=== PATIENT | male | born 1940 | race Caucasian/White ===

== ENCOUNTER → 2022-11-10 15:41 | Outpatient (CLI) | payer MEDICARE, OTHER, SELFPAY ==
--- NOTE | ~2022-11-10 | XR_ITS ---
XR hip RT 2V w AP pelvis 11/10/2022 16:08 Indication: Right hip pain after fall. Procedure: AP pelvis and 2 views right hip Comparison: No prior studies for comparison. Findings: There is a nondisplaced right femoral subcapital fracture. Pelvic rings are intact. Left hi p is unremarkable. Impression: 1: Nondisplaced right femoral subcapital fracture. Dr. Robert Orellana discussed with Dr. Milan RehmanMD at 11/10/2022 18:59 SKIDDER DRIVER. Reviewed, dictated and finalized at location A. DER DRIVER Impression: 1: Nondisplaced right femoral subcapital fracture. Dr. Robert Orellana discussed with Dr. Milan RehmanMD at 11/10/2022 18:59 SKIDDER DRIVER.
== END ==
PROVIDERS: PCP Emergency Medicine; Visit Provider Emergency Medicine
DX: S72.011A Unspecified intracapsular fracture of right femur, initial encounter for closed fracture (principal); W19.XXXA Unspecified fall, initial encounter
CPT/HCPCS: 73502